=== PATIENT | female | born 1980 | race Caucasian/White ===

== ENCOUNTER 2016-06-23 12:45 | Inpatient (IN) | payer OTHER ==
[~2016-06-23 12:45] MED LIST: CITRIC ACID/SODIUM CITRATE 30 ML UNIT-DOSE CUP PO ONE; ELECTROLYTE-148 SOLN 1,000 ML IV ONE
[2016-06-23] MEDS ORDERED: ELECTROLYTE-148 SOLN 1,000 ML IV SCH (13:45)
[2016-06-23 13:47] VITALS: BMI 28.9
[2016-06-23] MEDS ORDERED: diphenhydrAMINE HCL 25 MG CAPSULE (FP) PO PRN (16:07)
[2016-06-23] MEDS ORDERED: WITCH HAZEL 50% (TUCKS) 40 PAD/JAR PAD TP PRN (16:07)
[2016-06-23] MEDS ORDERED: BENZOCAINE 28 GM HEMORRHOIDAL OINTMENT PR PRN (16:07)
[2016-06-23] MEDS ORDERED: BENZOCAINE 20% 57 GM BOTTLE TP PRN (16:07)
[2016-06-23] MEDS ORDERED: METHYLERGONOVINE MALEATE 0.2 MG/1 ML AMP IM PRN (16:07)
[2016-06-23] MEDS ORDERED: IBUPROFEN 800 MG/8 ML IJ IVPB PRN (16:07)
[2016-06-23] MEDS ORDERED: OXYTOCIN 20 UNITS in 0.9% NS 1,000 ML IV SCH (16:15)
[2016-06-23] MEDS ORDERED: DEXTROSE 5%-LACTATED RINGERS 1,000 ML IV SCH (16:15)
--- NOTE | 2016-06-23 16:25 | HP ---
Past Medical History - Primary Care Physician PCP:: Mikey Helton - Admission Chief Complaint: 39 .5 weeks , cpd, request of c/s. ama History of Present Illness: 35 yo f g1 po with difficulty with pelvic exam and anrrow pelvis requesting to have c/s risks of c/s discussed , trial of vaginal delivery explained declined History Source: Patient Limitations to Obtaining History: No Limitations - Past Medical History ...: 1 ...Para: 0 ...Term: 0 ...: 0 ...Spon : 0 ...Induced : 0 ...Multiple Gestation: 0 ...LMP: 11/22/15 ... Weeks Gestation by Dates: 39.2 ...EDC by Dates: 06/28/16 - Past Surgical History Hx Myomectomy: No Hx Transabdominal Cerclage: No - Smoking History Smoking history: Never smoked Have you smoked in the past 12 months: No - Alcohol/Substance Use Hx Alcohol Use: No - Social History Usual Living Arrangement: Yes: With Spouse Home Medications - Allergies Allergies/Adverse Reactions: Allergies Allergy/AdvReac Type Severity Reaction Status Date / Time No Known Allergies Allergy Verified 06/23/16 13:10 - Home Medications Home Medications: Ambulatory Orders NK [No Known Home Medication] 06/23/16 Review of Systems - Review of Systems Constitutional: reports: No Symptoms Eyes: reports: No Symptoms HENT: reports: No Symptoms Neck: reports: No Symptoms Cardiovascular: reports: No Symptoms Respiratory: reports: No Symptoms Genitourinary: reports: No Symptoms Breasts: reports: No Symptoms Reported Musculoskeletal: reports: No Symptoms Integumentary: reports: No Symptoms Neurological: reports: No Symptoms Endocrine: reports: No Symptoms Hematology/Lymphatic: reports: No Symptoms Psychiatric: reports: No Symptoms Physical Exam - Maternity Vital Signs: Vital Signs Temperature 97.9 F 06/23/16 13:30 Pulse Rate 78 06/23/16 13:30 Respiratory Rate 18 06/23/16 13:30 Blood Pressure 107/60 06/23/16 13:30 O2 Sat by Pulse Oximetry (%) Constitutional: Yes: Well Nourished, No Distress, Calm Eyes: Yes: WNL, Conjunctiva Clear, EOM Intact HENT: Yes: WNL, Atraumatic, Normocephalic Neck: Yes: WNL, Supple, Trachea Midline Cardiovascular: Yes: WNL, Regular Rate and Rhythm Breast(s): Yes: WNL - Abdominal Exam/OB Number of Fetuses: Single Presentation: Vertex Contractions: No Intensity: Unaware Monitor Mode: External Heart Rate Location: [facility] Category: I Accelerations: Uniform Decelerations: None - Vaginal Exam/OB Speculum Exam: No Dilatation (cm): closed Effacement (%): none Amniotic Membrane Status: Intact Presentation: Vertex/Position Station: -4 - Physical Exam Extremities: Yes: WNL Edema: LLE: Trace, RLE: Trace Deep Tendon Reflex Grade: Normal +2 Psychiatric: Yes: WNL Hemorrhage Risk Assessment - Risk Factors Risk Score: 0 Risk Level: Low Risk Problem List - Problems (1) with 39 completed weeks gestation Code(s): Z3A.39 - 39 WEEKS GESTATION OF (2) Cephalopelvic disproportion Code(s): O33.9 - MATERNAL CARE FOR DISPROPORTION, UNSPECIFIED Qualifiers: Cephalopelvic disproportion type: deformity of maternal pelvic bones Qualified Code(s): O33.0 - Maternal care for disproportion due to deformity of maternal pelvic bones Assessment/Plan patient has difficulty with pelvic exam, very uncomfortable , wants c/s , risks discussed, aware of all risks
[2016-06-23] MEDS ORDERED: ONDANSETRON 4 MG/2 ML VIAL IVPB PRN (16:28)
[2016-06-23] MEDS ORDERED: CEFAZOLIN (PRE-DOCKED) 50 ML IVPB SCH (18:00)
[2016-06-23] MEDS: CEFAZOLIN (PRE-DOCKED) 50 ML IVPB SCH (22:34)
[2016-06-24] MEDS: CEFAZOLIN (PRE-DOCKED) 50 ML IVPB SCH (06:28)
--- NOTE | 2016-06-24 07:35 | OP ---
DATE OF OPERATION: 06/23/2016 PREOPERATIVE DIAGNOSIS: , 39.5 weeks gestation, CPD (cephalopelvic disproportion) , request of section. POSTOPERATIVE DIAGNOSIS: , 39.5 weeks gestation, CPD (cephalopelvic disproportion) , request of section. PROCEDURE: Primary low segment transverse section. SURGEON: Mikey Helton MD INSIDE SALES ASSISTANT: Dawood Mcbride MD ANESTHESIA: Spinal. ANESTHESIOLOGIST: Maria Elena Madera MD ESTIMATED BLOOD LOSS: 500 mL. FINDING: Live baby girl, Apgars 9 and 9, occiput posterior position. OPERATION: The patient was taken to the operating room, had adequate spinal anesthesia. Abdomen and perineum were prepped and draped. Pfannenstiel abdominal skin incision was made. Abdominal wall was cut layer by layer, until the peritoneum was exposed and incised. Upon entering the abdominal cavity, lower uterine segment was identified, and uterovesical fold of peritoneum was established, bladder was pushed down. Then, with the lower blade of the [place] retractor in the pelvis, a low transverse uterine incision was made. Incision extended laterally. Amniotic sac was entered. Clear fluid. Head was in occiput posterior position with difficulty to push it out. Therefore, a was placed, and the head was delivered without any difficulty. Nasopharynx was suctioned, and live baby girl was delivered. Placenta was delivered manually. Uterine cavity was cleaned of all remaining tissue. Uterine incision was closed using 2 layers, 1st layer with 0 Biosyn continuous suture, the 2nd layer with 0 Biosyn imbricating the 1st layer. Bladder flap was closed with 0 Biosyn continuous suture. Both tubes and ovaries were checked, were normal. No active bleeding was seen. All the lap pad, sponge, instrument counts were correct. Then, peritoneum was closed with 0 Biosyn continuous suture, muscles were brought together with interrupted sutures of 0 Biosyn, fascia was closed with 0 Biosyn continuous suture, subcutaneous fat with interrupted suture of 0 Biosyn, and the skin was closed with 3-0 Vicryl continuous subcuticular suture. Patient tolerated the procedure well, left the OR in good condition. Fern [id number]
--- NOTE | 2016-06-24 08:30 | PN ---
Progress Note (short form) - Note Progress Note: Anesthesia postop note 35 y/o F s/p spinal anesthesia for section, duramorph for postop pain management POD#1, vss, aaox3, pain well controlled, sensory motor intact distally, sitting in chair. No anesthesia complications.
--- NOTE | 2016-06-24 08:40 | PN ---
Progress Note (short form) - Note Progress Note: pod 1 doing well, no c/o Last Vital Signs Temp Pulse Resp BP Pulse Ox 97.6 F 77 20 91/54 100 06/24/16 08:29 06/24/16 08:29 06/24/16 08:29 06/24/16 08:29 06/23/16 17:25 abdomen soft, no distension, no cva incision dry, clean no calf tenderness no excess vaginal bleeding impression pod 1 s/p c/s doing well plan ambulate, cbc , advance diet Problem List - Problems (1) with 39 completed weeks gestation Code(s): Z3A.39 - 39 WEEKS GESTATION OF (2) Cephalopelvic disproportion Code(s): O33.9 - MATERNAL CARE FOR DISPROPORTION, UNSPECIFIED Qualifiers: Cephalopelvic disproportion type: deformity of maternal pelvic bones Qualified Code(s): O33.0 - Maternal care for disproportion due to deformity of maternal pelvic bones
[2016-06-24] MEDS: IBUPROFEN 600 MG TABLET (FP) PO PRN ×3 (09:01→20:14)
[2016-06-24] MEDS: oxyCODONE HCL 5 MG TABLET PO PRN ×3 (09:01→20:14)
[2016-06-24 09:08] LABS: BASOPHIL 0.5 % (0-2.0); EOSINOPHIL 1.4 % (0-4.5); MCHC 32.6 g/dl (32.0-36.0); MEAN CELL VOLUME 82.9 fl (80-96); MEAN PLT VOLUME 9.6 fl (7.5-11.1); NEUTROPHILS 77.6 % (42.8-82.8); PLATELET COUNT 170 K/MM3 (134-434); RDW 15.3 % (11.6-15.6); WHITE BLOOD COUNT 10.7 K/mm3 (4.0-10.0)
[2016-06-24] MEDS ORDERED: INFLUENZA VACCINE 45 MCG/0.5 ML (MDV 16-17) IM ONE (10:00)
[2016-06-24] MEDS ORDERED: INFLUENZA VACCINE 60 MCG/0.5 ML (P/F DISP.SYRIN 16-17) IM ONE (10:00)
[2016-06-24] MEDS ORDERED: DIPHTH,PERTUSS(ACELL),TET 0.5 ML DISP.SYRIN IM ONE (10:00)
[2016-06-24] MEDS: ENOXAPARIN NA (PORCINE) 40 MG/0.4 ML DISP.SYRIN SQ SCH (10:04)
[2016-06-24] MEDS: SIMETHICONE 80 MG TAB.CHEW (FP) PO PRN ×2 (15:31→20:17)
[2016-06-24] MEDS ORDERED: BISACODYL 10 MG SUPP.RECT RC PRN (16:07)
[2016-06-25] MEDS: oxyCODONE HCL 5 MG TABLET PO PRN ×4 (01:30→21:04)
[2016-06-25] MEDS: SIMETHICONE 80 MG TAB.CHEW (FP) PO PRN ×4 (01:30→21:04)
[2016-06-25] MEDS: IBUPROFEN 600 MG TABLET (FP) PO PRN ×2 (01:36→13:08)
[2016-06-25] MEDS: ENOXAPARIN NA (PORCINE) 40 MG/0.4 ML DISP.SYRIN SQ SCH (09:48)
--- NOTE | 2016-06-25 10:30 | PN ---
Post Progress Note - Subjective Subjective: Patient without acute complaints. Reports tolerating oral intake without nausea or vomiting. Ambulating without dizziness. Denies fevers or chills. Pain well controlled with oral pain medication. without difficulty. Passing flatus. Post Day: 2 Type of Delivery: Vital Signs: Vital Signs Temperature 98.8 F 06/24/16 22:00 Pulse Rate 88 06/24/16 22:00 Respiratory Rate 20 06/24/16 22:00 Blood Pressure 103/59 06/24/16 22:00 O2 Sat by Pulse Oximetry (%) 100 06/23/16 17:25 Breast Exam: Yes: Engorged Uterus: Yes: Fundus Firm, Fundus below umbilicus Incision: Yes: Sutures intact. No: Redness, Oozing Abdomen/GI: Yes: Abdomen soft, Abdominal Distention, Tender (mild incisional tenderness), Passing flatus, Tolerating PO Lochia: Yes: Serosa Lochia, amount: Small Extremities: Yes: Calves non-tender - Labs Labs: CBC WBC 10.7 K/mm3 (4.0-10.0) H 06/24/16 08:31 RBC 4.04 M/mm3 (3.60-5.2) 06/24/16 08:31 Hgb 10.9 GM/dL (10.7-15.3) 06/24/16 08:31 Hct 33.5 % (32.4-45.2) 06/24/16 08:31 MCV 82.9 fl (80-96) 06/24/16 08:31 MCHC 32.6 g/dl (32.0-36.0) 06/24/16 08:31 RDW 15.3 % (11.6-15.6) 06/24/16 08:31 Plt Count 170 K/MM3 (134-434) 06/24/16 08:31 MPV 9.6 fl (7.5-11.1) 06/24/16 08:31 Neutrophils % 77.6 % (42.8-82.8) 06/24/16 08:31 Lymphocytes % 12.0 % (8-40) D 06/24/16 08:31 Monocytes % 8.5 % (3.8-10.2) 06/24/16 08:31 Eosinophils % 1.4 % (0-4.5) 06/24/16 08:31 Basophils % 0.5 % (0-2.0) 06/24/16 08:31 Assessment/Plan 35 yo POD # 2 s/p repeat delivery, afebrile, vital signs stable, doing well 1. Continue routine postoperative care. 2. Encourage ambulation and incentive spirometer use 3. Continue oral pain medication 4. Anticipate discharge home postoperative day #4
[2016-06-25] MEDS: ACETAMINOPHEN 325 MG TABLET (FP) PO PRN ×2 (16:48→21:05)
[2016-06-25] MEDS: SENNOSIDES/DOCUSATE COMBO (SENNA PLUS) TABLET (UD) PO PRN (21:05)
[2016-06-26] MEDS: ACETAMINOPHEN 325 MG TABLET (FP) PO PRN ×5 (03:05→23:27)
[2016-06-26] MEDS: oxyCODONE HCL 5 MG TABLET PO PRN ×5 (03:06→23:28)
[2016-06-26] MEDS: SIMETHICONE 80 MG TAB.CHEW (FP) PO PRN ×5 (03:09→23:27)
[2016-06-26 08:34] LABS: BASOPHIL 0.6 % (0-2.0); MCH 27.1 pg (25.7-33.7); MCHC 32.7 g/dl (32.0-36.0); MEAN PLT VOLUME 8.4 fl (7.5-11.1); PLATELET COUNT 179 K/MM3 (134-434); RDW 15.6 % (11.6-15.6); WHITE BLOOD COUNT 7.8 K/mm3 (4.0-10.0)
[2016-06-26] MEDS: ENOXAPARIN NA (PORCINE) 40 MG/0.4 ML DISP.SYRIN SQ SCH (09:22)
--- NOTE | 2016-06-26 10:31 | PN ---
Post Progress Note - Subjective Subjective: Patient without acute complaints. Reports tolerating oral intake without nausea or vomiting. Ambulating without dizziness. Denies fevers or chills. Pain well controlled with oral pain medication. without difficulty. Passing flatus. Post Day: 3 Type of Delivery: Primary C/S Vital Signs: Vital Signs Temperature 98.7 F 06/26/16 09:45 Pulse Rate 85 06/26/16 09:45 Respiratory Rate 18 06/26/16 09:45 Blood Pressure 104/58 06/26/16 09:45 O2 Sat by Pulse Oximetry (%) 100 06/23/16 17:25 Breast Exam: Yes: Engorged Uterus: Yes: Fundus Firm, Fundus below umbilicus Incision: Yes: Sutures intact. No: Redness, Oozing Abdomen/GI: Yes: Abdomen soft, Tender, Passing flatus, Tolerating PO Lochia: Yes: Serosa Lochia, amount: Small Extremities: Yes: Calves non-tender. No: Edema Activity: Ambulating - Labs Labs: CBC WBC 7.8 K/mm3 (4.0-10.0) 06/26/16 08:10 RBC 3.85 M/mm3 (3.60-5.2) 06/26/16 08:10 Hgb 10.5 GM/dL (10.7-15.3) L 06/26/16 08:10 Hct 32.0 % (32.4-45.2) L 06/26/16 08:10 MCV 83.0 fl (80-96) 06/26/16 08:10 MCHC 32.7 g/dl (32.0-36.0) 06/26/16 08:10 RDW 15.6 % (11.6-15.6) 06/26/16 08:10 Plt Count 179 K/MM3 (134-434) 06/26/16 08:10 MPV 8.4 fl (7.5-11.1) D 06/26/16 08:10 Neutrophils % 66.0 % (42.8-82.8) 06/26/16 08:10 Lymphocytes % 19.1 % (8-40) D 06/26/16 08:10 Monocytes % 11.3 % (3.8-10.2) H 06/26/16 08:10 Eosinophils % 3.0 % (0-4.5) D 06/26/16 08:10 Basophils % 0.6 % (0-2.0) 06/26/16 08:10 Assessment/Plan 35 yo POD # 3 s/p repeat delivery, afebrile, vital signs stable, doing well 1. Continue routine postoperative care. 2. Encourage ambulation and incentive spirometer use 3. Continue oral pain medication 4. Anticipate discharge home postoperative day #4
[2016-06-26] MEDS ORDERED: oxyCODONE HCL 5 MG TABLET PO PRN (12:40)
[2016-06-26] MEDS: SENNOSIDES/DOCUSATE COMBO (SENNA PLUS) TABLET (UD) PO PRN (23:29)
[2016-06-27] MEDS: SIMETHICONE 80 MG TAB.CHEW (FP) PO PRN (05:39)
[2016-06-27] MEDS: ACETAMINOPHEN 325 MG TABLET (FP) PO PRN (05:39)
[2016-06-27] MEDS: oxyCODONE HCL 5 MG TABLET PO PRN (05:40)
[2016-06-27 09:07] VITALS: BP 98/48; PULSE 75; TEMP 98.1
[2016-06-27] MEDS: ENOXAPARIN NA (PORCINE) 40 MG/0.4 ML DISP.SYRIN SQ SCH (09:46)
--- NOTE | 2016-06-27 10:24 | PN ---
Post Progress Note - Subjective Subjective: Patient without acute complaints. Reports tolerating oral intake without nausea or vomiting. Ambulating without dizziness. Denies fevers or chills. Pain well controlled with oral pain medication. without difficulty. Passing flatus. Post Day: 4 Type of Delivery: Primary C/S Vital Signs: Vital Signs Temperature 98.1 F 06/27/16 09:05 Pulse Rate 75 06/27/16 09:05 Respiratory Rate 20 06/27/16 09:05 Blood Pressure 98/48 06/27/16 09:05 O2 Sat by Pulse Oximetry (%) 100 06/23/16 17:25 Breast Exam: Yes: Engorged Uterus: Yes: Fundus Firm, Fundus below umbilicus Incision: Yes: Sutures intact. No: Redness, Oozing Abdomen/GI: Yes: Abdomen soft, Passing flatus, Tolerating PO. No: Abdominal Distention, Tender Lochia: Yes: Serosa Extremities: Yes: Calves non-tender. No: Edema Activity: Ambulating - Labs Labs: CBC WBC 7.8 K/mm3 (4.0-10.0) 06/26/16 08:10 RBC 3.85 M/mm3 (3.60-5.2) 06/26/16 08:10 Hgb 10.5 GM/dL (10.7-15.3) L 06/26/16 08:10 Hct 32.0 % (32.4-45.2) L 06/26/16 08:10 MCV 83.0 fl (80-96) 06/26/16 08:10 MCHC 32.7 g/dl (32.0-36.0) 06/26/16 08:10 RDW 15.6 % (11.6-15.6) 06/26/16 08:10 Plt Count 179 K/MM3 (134-434) 06/26/16 08:10 MPV 8.4 fl (7.5-11.1) D 06/26/16 08:10 Neutrophils % 66.0 % (42.8-82.8) 06/26/16 08:10 Lymphocytes % 19.1 % (8-40) D 06/26/16 08:10 Monocytes % 11.3 % (3.8-10.2) H 06/26/16 08:10 Eosinophils % 3.0 % (0-4.5) D 06/26/16 08:10 Basophils % 0.6 % (0-2.0) 06/26/16 08:10 Assessment/Plan 35 yo POD # 4 s/p repeat delivery, afebrile, vital signs stable, doing well 1. Patient stable for discharge home today. 2. Patient encouraged to contact MD for: - Severe pain not controlled by oral pain medication - Fevers or chills - Nausea or vomiting, intolerance of oral intake - Incision redness, tenderness or discharge 3. Patient to follow up in office in 1-2 weeks for incision check, 4-6 weeks for visit
[2016-06-27] MEDS: IBUPROFEN 600 MG TABLET (FP) PO PRN (11:51)
--- NOTE | 2016-06-27 12:40 | EKG ---
Test Reason : Blood Pressure : / mmHG Vent. Rate : 073 BPM Atrial Rate : 073 BPM P-R Int : 152 ms QRS Dur : 076 ms QT Int : 428 ms P-R-T Axes : 008 025 021 degrees QTc Int : 471 ms NORMAL SINUS RHYTHM NORMAL ECG NO PREVIOUS ECGS AVAILABLE Confirmed by MARGARET DURANT MD ([id number]) on 06/27/2016 12:40:10 PM Referred By: Confirmed By:MARGARET DURANT MD
--- NOTE | 2016-06-28 03:27 | DS ---
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 Vital Signs: Vital Signs Temperature 98.1 F 06/27/16 09:05 Pulse Rate 75 06/27/16 09:05 Respiratory Rate 20 06/27/16 09:05 Blood Pressure 98/48 06/27/16 09:05 O2 Sat by Pulse Oximetry (%) 100 06/23/16 17:25 Constitutional: Yes: Well Nourished, No Distress, Calm Eyes: Yes: WNL, Conjunctiva Clear, EOM Intact HENT: Yes: WNL, Atraumatic, Normocephalic Neck: Yes: WNL, Supple, Trachea Midline Cardiovascular: Yes: WNL, Regular Rate and Rhythm Respiratory: Yes: WNL, Regular, CTA Bilaterally Gastrointestinal: Yes: WNL ...Rectal Exam: Yes: WNL Renal/: Yes: WNL ....Post : Yes: Uterus firm, Uterus non-tender, Slight lochia rubra Breast(s): Yes: WNL Musculoskeletal: Yes: WNL Extremities: Yes: WNL Edema: Yes Edema: LLE: Trace, RLE: Trace Integumentary: Yes: WNL Wound/Incision: Yes: Clean/Dry, Well Approximated, Sutures Intact Neurological: Yes: WNL, Alert, Oriented ...Motor Strength: WNL Psychiatric: Yes: WNL, Alert, Oriented Labs: CBC, BMP 06/26/16 08:10 Delivery - Delivery Section: Primary, Low Flap Transverse (no complication) Type of Anesthesia: Spinal Episiotomy/Laceration: None EBL (cc): 500 Delivery, Single - Stages of Labor Date of Delivery: 06/23/16 Time of Delivery: 15:24 Time Placenta Delivered: 15:25 - Condition of 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 You may walk unlimited rashi of and climb stairs. You may resume driving the car when you feel safe and comfortable behind the wheel. No sexual activity as instructed. Wound care If you have a bandage, leave it on, and keep dry for 48-72 hours. After that time discard the outer bandage. If they are tapes on the skin under the out of bandage leave them in place. They will peel off in the next 7 to 10 days. Do Not Peel them off. You may shower the day after surgery. If there are tapes present on the skin, you may shower over them. Diet There are no dietary restrictions. Eat healthy, high-fiber foods. Drink 6 to 8 glasses of liquid each day. This will assist in keeping your bowels are regular. Pain management You may take Tylenol or acetaminophen or Ibuprofen (for example, Motrin, Advil etc.) from my pain prescription medication is ordered should be taken as prescribed for moderate to severe pain. Call MD for any of the following: Severe pain not relieved by medication Fever of 101 or higher Excessive bleeding or drainage on dressing Inability to urinate Referrals: Pilar Ortiz MD [Staff Physician] - Disposition: HOME - Home Medications Comprehensive Discharge Medication List: Ambulatory Orders Ibuprofen [Motrin -] 600 mg PO QID #60 tablet 06/27/16 Oxycodone HCl/Acetaminophen [Percocet 5-325 mg Tablet -] 1 - 2 tab PO Q6H #20 tab MDD 6 06/27/16
--- NOTE | 2016-07-01 11:26 | PATH ---
Surgical Pathology Report Patient Name: ALMA FALK Med. Rec. 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 Specimen(s) Received PLACENTA Clinical History , 39.2 weeks CPD Elective Final Diagnosis PLACENTA, DELIVERY: FOCALLY DISRUPTED THIRD TRIMESTER PLACENTA WITH INTERVILLOUS THROMBUS, 3 VESSEL UMBILICAL CORD, AND CIRCUMMARGINATE INSERTION OF MEMBRANES. Electronically Signed Carmine Lorenzo M.D. Gross Description The specimen is received fresh labeled placenta and is a 614 gram, 18.0 x 16.5 x 3.0 cm. placenta with attached membranes and umbilical cord. The attached membranes are sheikh, translucent with focal opacities and display focal circum-marginate insertion. The umbilical cord measures 30 cm. in length and averages 1 cm. in diameter. The cord inserts eccentrically, 3.5 cm. to the nearest margin. No true knots or strictures are identified. Cut surface of the umbilical cord reveals 3 vessels. The surface is lucas blue with moderate fibrin deposition and appropriate caliber vessels. The maternal surface is red-brown with focal defects. Sectioning reveals a 2.0 cm in greatest dimension sheikh intraparenchymal lesion. The remaining placental parenchyma is red-brown and spongy. Reference Services Head sections are submitted in 4 cassettes as follows: 1-membrane rolls and umbilical cord; 2-lesion; 3-4-full thickness sections of placenta. 06/30/2016 [facility]06/30/2016
== END 2016-06-27 12:45 | disposition home or self-care (01) | DRG 371 ==
LOC: JLDR 12:45 → J3W 18:13
PROVIDERS: ADMIT Obstetrics & Gynecology; ATTEND Obstetrics & Gynecology
PROC: 10D00Z1 Extraction of Products of Conception, Low, Open Approach (ICD-10-PCS; principal; 2016-06-23)
DX: O33.0 Maternal care for disproportion due to deformity of maternal pelvic bones (principal); Z3A.39 39 weeks gestation of pregnancy; Z37.0 Single live birth
CPT/HCPCS: 36415; 85025; 86850; 86900; 86901; 88307-TC; 90686; 90715; 93005; 93010; G0008

== ENCOUNTER 2020-04-16 12:05 | Inpatient (IN) | payer BC ==
[2020-04-16] MEDS ORDERED: CITRIC ACID/SODIUM CITRATE 30 ML UNIT-DOSE CUP PO ONE (12:52)
[2020-04-16] MEDS ORDERED: ELECTROLYTE-148 SOLN 500 ML IV ONE (13:00)
[2020-04-16] MEDS ORDERED: ELECTROLYTE-148 SOLN 1,000 ML IV SCH (13:00)
[2020-04-16 13:04] VITALS: BMI 30.6
[2020-04-16] MEDS ORDERED: morphine SULFATE/PF 0.5 MG/ML (2cc Syringe - QUVA) ONE (13:45)
[2020-04-16] MEDS ORDERED: PHENYLEPHRINE HCL 10 MG/1 ML SINGLE DOSE VIAL ONE (13:50)
[2020-04-16] MEDS ORDERED: ePHEDrine SULFATE 50 MG/1 ML AMPULE ONE (13:55)
[2020-04-16] MEDS ORDERED: OXYTOCIN 20 UNITS in 0.9% NS 20 UNIT/1,000 ML INFUS.BAG IV ONE (15:03)
[2020-04-16] MEDS ORDERED: ONDANSETRON 4 MG/2 ML VIAL IVPUSH PRN (15:30)
[2020-04-16] MEDS ORDERED: KETOROLAC TROMETHAMINE 30 MG/1 ML VIAL ONE (15:35)
[2020-04-16] MEDS ORDERED: oxyCODONE HCL 5 MG TABLET PO PRN ×2 (15:36)
[2020-04-16] MEDS ORDERED: METHYLERGONOVINE MALEATE 0.2 MG/1 ML AMP IM PRN (15:36)
[2020-04-16] MEDS ORDERED: diphenhydrAMINE HCL 25 MG CAPSULE (FP) PO PRN (15:36)
[2020-04-16] MEDS ORDERED: IBUPROFEN 800 MG/8 ML IJ IVPB PRN (15:36)
[2020-04-16] MEDS ORDERED: BENZOCAINE 28 GM HEMORRHOIDAL OINTMENT PR PRN (15:36)
[2020-04-16] MEDS ORDERED: WITCH HAZEL 50% (TUCKS) 40 PAD/JAR PAD TP PRN (15:36)
[2020-04-16] MEDS ORDERED: BENZOCAINE 20% 57 GM BOTTLE TP PRN (15:36)
[2020-04-16 15:44] LABS: CORD BASE EXCESS -2.7 mmol/L (0-2); CORD HCO3 23.2 mmHg (20-29); CORD HCO3 25.1 mmHg (20-29); CORD PCO2 43.9 mmHg (30-78); CORD PCO2 56.3 mmHg (30-78); CORD pH 7.267 (7.14-7.44); CORD pH 7.341 (7.14-7.44)
[2020-04-16] MEDS ORDERED: OXYTOCIN 20 UNITS in 0.9% NS 20 UNIT/1,000 ML INFUS.BAG IV SCH (15:45)
[2020-04-16] MEDS ORDERED: DEXTROSE 5%-LACTATED RINGERS 1,000 ML IV SCH (15:45)
[2020-04-16] MEDS: CEFAZOLIN 1 GM/D5W 1 GM/50 ML BAG IVPB SCH (18:08)
[2020-04-17] MEDS: CEFAZOLIN 1 GM/D5W 1 GM/50 ML BAG IVPB SCH (01:23)
[2020-04-17 08:54] LABS: BASO % 0.8 % (0-2.0); EOS % 1.5 % (0-4.5); HEMATOCRIT 30.9 % (32.4-45.2); HEMOGLOBIN 10.6 GM/dL (10.7-15.3); LYMPH % 23.3 % (8-40); MCH 31.5 pg (25.7-33.7); MCHC 34.2 g/dl (32.0-36.0); MEAN CELL VOLUME 91.9 fl (80-96); MEAN PLT VOLUME 10.3 fl (7.5-11.1); MONO % 6.7 % (3.8-10.2); NEUT % 67.7 % (42.8-82.8); PLATELET COUNT 138 K/MM3 (134-434); RBC 3.36 M/mm3 (3.60-5.2); RDW 13.2 % (11.6-15.6); WHITE BLOOD COUNT 8.4 K/mm3 (4.0-10.0)
[2020-04-17] MEDS: ENOXAPARIN NA (PORCINE) 40 MG/0.4 ML DISP.SYRIN SQ SCH (11:45)
[2020-04-17] MEDS ORDERED: BISACODYL 10 MG SUPP.RECT PR PRN (15:36)
[2020-04-17] MEDS: ACETAMINOPHEN 325 MG TABLET (FP) PO PRN (16:25)
[2020-04-17] MEDS: SIMETHICONE 80 MG TAB.CHEW (FP) PO PRN (16:25)
[2020-04-17] MEDS: IBUPROFEN 600 MG TABLET (FP) PO PRN (16:25)
[2020-04-18] MEDS: IBUPROFEN 600 MG TABLET (FP) PO PRN ×4 (02:27→20:22)
[2020-04-18] MEDS: SENNOSIDES/DOCUSATE COMBO (SENNA PLUS) TABLET (UD) PO PRN ×2 (02:27→20:21)
[2020-04-18] MEDS: SIMETHICONE 80 MG TAB.CHEW (FP) PO PRN ×4 (02:27→20:22)
[2020-04-18] MEDS: ACETAMINOPHEN 325 MG TABLET (FP) PO PRN ×4 (02:28→20:22)
[2020-04-18] MEDS: ENOXAPARIN NA (PORCINE) 40 MG/0.4 ML DISP.SYRIN SQ SCH (09:36)
[2020-04-19 09:48] LABS: BASO % 0.4 % (0-2.0); EOS % 2.2 % (0-4.5); HEMATOCRIT 32.5 % (32.4-45.2); LYMPH % 16.2 % (8-40); MCH 31.5 pg (25.7-33.7); MCHC 33.8 g/dl (32.0-36.0); MEAN CELL VOLUME 93.1 fl (80-96); MONO % 5.2 % (3.8-10.2); PLATELET COUNT 161 K/MM3 (134-434); RBC 3.48 M/mm3 (3.60-5.2); RDW 13.9 % (11.6-15.6); WHITE BLOOD COUNT 7.8 K/mm3 (4.0-10.0)
[2020-04-19] MEDS: ENOXAPARIN NA (PORCINE) 40 MG/0.4 ML DISP.SYRIN SQ SCH (12:47)
[2020-04-19] MEDS: IBUPROFEN 600 MG TABLET (FP) PO PRN ×2 (12:47→20:34)
[2020-04-19] MEDS: ACETAMINOPHEN 325 MG TABLET (FP) PO PRN ×2 (12:47→20:34)
[2020-04-19] MEDS: SENNOSIDES/DOCUSATE COMBO (SENNA PLUS) TABLET (UD) PO PRN (20:35)
[2020-04-19] MEDS: SIMETHICONE 80 MG TAB.CHEW (FP) PO PRN (20:35)
[2020-04-20 09:54] VITALS: BP 120/67; PULSE 62; TEMP 98
[2020-04-20] MEDS: ENOXAPARIN NA (PORCINE) 40 MG/0.4 ML DISP.SYRIN SQ SCH (12:56)
[2020-04-20] MEDS: IBUPROFEN 600 MG TABLET (FP) PO PRN (16:11)
[2020-04-20] MEDS: ACETAMINOPHEN 325 MG TABLET (FP) PO PRN (16:11)
== END 2020-04-20 19:50 | disposition home or self-care (01) | DRG 788 ==
LOC: JLDR 12:05 → J3W 17:00
PROVIDERS: ADMIT Obstetrics & Gynecology; ATTEND Obstetrics & Gynecology
PROC: 10D00Z1 Extraction of Products of Conception, Low, Open Approach (ICD-10-PCS; principal; 2020-04-16)
DX: O34.219 Maternal care for unspecified type scar from previous cesarean delivery (principal); O36.5930 Maternal care for other known or suspected poor fetal growth, third trimester, not applicable or unspecified; O69.81X0 Labor and delivery complicated by cord around neck, without compression, not applicable or unspecified; Z3A.38 38 weeks gestation of pregnancy; Z37.0 Single live birth
CPT/HCPCS: 36415; 36600; 82803; 85025; 88307-TC

== ENCOUNTER 2021-11-30 08:00 | Inpatient (IN) | payer BC ==
[2021-11-30] MEDS ORDERED: CITRIC ACID/SODIUM CITRATE 30 ML UNIT-DOSE CUP PO ONE (08:57)
[2021-11-30] MEDS: ELECTROLYTE-148 SOLN 1,000 ML IV SCH ×2 (09:50→11:00)
[2021-11-30 11:06] VITALS: BMI 28.5
[2021-11-30] MEDS ORDERED: morphine SULFATE/PF 1 MG/2 ML (2cc Syringe - QUVA) ONE (11:30)
[2021-11-30] MEDS ORDERED: OXYTOCIN 10 UNITS/ML VIAL ONE ×2 (12:00→12:03)
[2021-11-30] MEDS ORDERED: ceFAZolin SODIUM 1 GM VIAL ONE (12:00)
[2021-11-30] MEDS ORDERED: KETOROLAC TROMETHAMINE 30 MG/1 ML VIAL ONE (12:15)
[2021-11-30] MEDS ORDERED: ONDANSETRON 4 MG/2 ML VIAL ONE (12:15)
[2021-11-30] MEDS ORDERED: DEXAMETHASONE SOD PHOSPHATE 4 MG/1 ML VIAL ONE (12:15)
[2021-11-30] MEDS ORDERED: METHYLERGONOVINE MALEATE 0.2 MG/1 ML AMP IM PRN (12:54)
[2021-11-30] MEDS ORDERED: ACETAMINOPHEN 325 MG TABLET (FP) PO PRN ×2 (12:54→13:11)
[2021-11-30] MEDS ORDERED: IBUPROFEN 800 MG/8 ML IJ IVPB PRN (12:55)
[2021-11-30] MEDS ORDERED: ONDANSETRON 4 MG/2 ML VIAL IVPUSH PRN (13:11)
[2021-11-30] MEDS ORDERED: morphine SULFATE/PF 1 MG/2 ML (2cc Syringe - QUVA) EP ONE (13:11)
[2021-11-30 13:17] LABS: CORD BASE EXCESS -1.4 mmol/L (0-2); CORD PCO2 42.9 mmHg (30-78); CORD pH 7.366 (7.14-7.44)
[2021-11-30 13:25] LABS: CORD HCO3 13.6 mmHg (20-29); CORD PCO2 29.8 mmHg (30-78); CORD pH 7.276 (7.14-7.44)
[2021-11-30] MEDS: OXYTOCIN 20 UNITS in 0.9% NS 20 UNIT/1,000 ML INFUS.BAG IV SCH (15:00)
[2021-11-30 15:22] LABS: COCAINE, UR NEGATIVE (NEGATIVE); METHADONE, UR NEGATIVE (NEGATIVE); OPIATES, URI NEGATIVE (NEGATIVE); PHENCYCLIDINE,URINE NEGATIVE (NEGATIVE); URINE BARBITURATES NEGATIVE (NEGATIVE); URINE BENZODIAZEPINES NEGATIVE (NEGATIVE)
[2021-11-30 15:37] LABS: URINE AMPHETAMINES NEGATIVE (NEGATIVE)
[2021-11-30] MEDS: CEFAZOLIN 1 GM in DEXTROSE 5%-WATER - 50 ML IVPB SCH (17:59)
[2021-11-30] MEDS ORDERED: CEFAZOLIN 1 GM/D5W 1 GM/50 ML BAG IVPB SCH (18:00)
[2021-12-01] MEDS ORDERED: oxyCODONE HCL 5 MG TABLET PO PRN ×2 (00:54)
[2021-12-01] MEDS: CEFAZOLIN 1 GM in DEXTROSE 5%-WATER - 50 ML IVPB SCH ×2 (01:57→09:29)
[2021-12-01] MEDS: OXYTOCIN 20 UNITS in 0.9% NS 20 UNIT/1,000 ML INFUS.BAG IV SCH (05:49)
[2021-12-01 08:01] LABS: BASO % 0.5 % (0-2.0); EOS % 0.8 % (0-4.5); HEMATOCRIT 33.2 % (32.4-45.2); HEMOGLOBIN 11.3 GM/dL (10.7-15.3); LYMPH % 21.1 % (8-40); MCH 28.9 pg (25.7-33.7); MCHC 33.9 g/dl (32.0-36.0); MEAN CELL VOLUME 85.2 fl (80-96); MEAN PLT VOLUME 9.2 fl (7.5-11.1); MONO % 8.9 % (3.8-10.2); NEUT % 68.7 % (42.8-82.8); PLATELET COUNT 154 10^3/uL (134-434); RDW 15.4 % (11.6-15.6); WHITE BLOOD COUNT 10.4 K/mm3 (4.0-10.0)
[2021-12-01] MEDS: ENOXAPARIN NA (PORCINE) 40 MG/0.4 ML DISP.SYRIN SQ SCH (09:30)
[2021-12-01] MEDS ORDERED: BISACODYL 10 MG SUPP.RECT RC PRN (12:54)
[2021-12-01] MEDS: IBUPROFEN 600 MG TABLET (FP) PO PRN ×3 (13:59→23:38)
[2021-12-01] MEDS: SIMETHICONE 80 MG TAB.CHEW (FP) PO PRN ×2 (14:00→19:44)
[2021-12-02] MEDS ORDERED: SENNOSIDES/DOCUSATE COMBO (SENNA PLUS) TABLET (UD) PO PRN (00:01)
[2021-12-02] MEDS: SIMETHICONE 80 MG TAB.CHEW (FP) PO PRN ×3 (00:06→23:34)
[2021-12-02] MEDS: OXYTOCIN 20 UNITS in 0.9% NS 20 UNIT/1,000 ML INFUS.BAG IV SCH (01:31)
[2021-12-02] MEDS: IBUPROFEN 600 MG TABLET (FP) PO PRN ×3 (06:01→23:35)
[2021-12-02] MEDS: ENOXAPARIN NA (PORCINE) 40 MG/0.4 ML DISP.SYRIN SQ SCH (09:36)
[2021-12-03 07:19] LABS: BASO % 0.6 % (0-2.0); EOS % 4.2 % (0-4.5); HEMATOCRIT 35.1 % (32.4-45.2); HEMOGLOBIN 11.3 GM/dL (10.7-15.3); LYMPH % 22.1 % (8-40); MCHC 32.2 g/dl (32.0-36.0); MEAN PLT VOLUME 9.7 fl (7.5-11.1); NEUT % 67.1 % (42.8-82.8); PLATELET COUNT 176 10^3/uL (134-434); RBC 4.04 M/mm3 (3.60-5.2); RDW 15.8 % (11.6-15.6); WHITE BLOOD COUNT 7.1 K/mm3 (4.0-10.0)
[2021-12-03] MEDS: ENOXAPARIN NA (PORCINE) 40 MG/0.4 ML DISP.SYRIN SQ SCH (10:32)
[2021-12-03 13:06] VITALS: BP 94/56; PULSE 77; RESP 16; TEMP 98.1
== END 2021-12-03 12:30 | disposition home or self-care (01) | DRG 788 ==
LOC: JLDR 08:35 → J3W 14:45
PROVIDERS: ADMIT Obstetrics & Gynecology; ATTEND Obstetrics & Gynecology
PROC: 10D00Z1 Extraction of Products of Conception, Low, Open Approach (ICD-10-PCS; principal; 2021-11-30)
DX: O34.219 Maternal care for unspecified type scar from previous cesarean delivery (principal); Z3A.39 39 weeks gestation of pregnancy; Z37.0 Single live birth
CPT/HCPCS: 36415; 36600; 80307; 82803; 85025; 88307-TC